=== PATIENT | male | born 1940 | race Two or more races ===

== ENCOUNTER 2017-08-30 13:01 | Outpatient (CLI) | payer OTHER | END 2017-08-30 15:29 | disposition home or self-care (01) | LOC: RAD 13:01 | DX: J44.9 Chronic obstructive pulmonary disease, unspecified (principal) ==

== ENCOUNTER 2017-08-30 14:25 | Outpatient (CLI) | payer OTHER | END 2017-08-30 15:29 | disposition home or self-care (01) | LOC: MRI 14:25 | DX: H90.3 Sensorineural hearing loss, bilateral (principal); H93.13 Tinnitus, bilateral | CPT/HCPCS: 70553; A9579 ==

== ENCOUNTER → 2017-08-30 | Outpatient (CLI) | payer OTHER ==
[~2017-08-30] MED LIST: GABARONE100 MG
== END | disposition home or self-care (01) ==
LOC: LAB 12:06
DX: H90.3 Sensorineural hearing loss, bilateral (principal)

== ENCOUNTER 2017-10-22 08:59 | Outpatient (CLI) | payer OTHER | END 2017-10-22 15:24 | disposition home or self-care (01) | LOC: TOM 08:59 | DX: K57.90 Diverticulosis of intestine, part unspecified, without perforation or abscess without bleeding (principal); N20.0 Calculus of kidney | CPT/HCPCS: 74177; Q9965 ==

== ENCOUNTER 2017-10-29 08:15 | Inpatient (IN) | payer OTHER ==
[~2017-10-29] VITALS: Ht 170.2 cm; Wt 93.4 kg
[2017-10-29] MEDS ORDERED: LEVO-T25 MCG PO (12:44)
[2017-10-29] MEDS ORDERED: ANTI-GAS180 MG PO (12:45)
[2017-10-29] MEDS ORDERED: METOPROLOL SUCC50 MG PO (12:45)
[2017-10-29] MEDS ORDERED: TAMS0.4C PO (12:45)
[2017-10-29] MEDS ORDERED: PLAVIX75 MG PO (12:46)
[2017-10-29] MEDS ORDERED: ASA81 MG PO (12:46)
[2017-10-29] MEDS ORDERED: COZAAR25 MG PO (12:46)
== END 2017-11-19 17:45 | disposition home or self-care (01) | DRG 329 ==
LOC: ADM 08:15 → EDSTATUS 08:15 → SURH 11-12 07:00 → O/R 11-12 07:45 → SURH 11-12 08:15
PROVIDERS: Colon & Rectal Surgery
PROC: 07TC4ZZ Resection of Pelvis Lymphatic, Percutaneous Endoscopic Approach (ICD-10-PCS; 2017-11-12)
PROC: 0DBU4ZZ Excision of Omentum, Percutaneous Endoscopic Approach (ICD-10-PCS; 2017-11-12)
PROC: 5A1945Z Respiratory Ventilation, 24-96 Consecutive Hours (ICD-10-PCS; 2017-11-12)
PROC: 0BH17EZ Insertion of Endotracheal Airway into Trachea, Via Natural or Artificial Opening (ICD-10-PCS; 2017-11-12)
PROC: 3E0F7GC Introduction of Other Therapeutic Substance into Respiratory Tract, Via Natural or Artificial Opening (ICD-10-PCS; 2017-11-12)
PROC: 4A033R1 Measurement of Arterial Saturation, Peripheral, Percutaneous Approach (ICD-10-PCS; 2017-11-12)
PROC: 0DTF4ZZ Resection of Right Large Intestine, Percutaneous Endoscopic Approach (ICD-10-PCS; principal; 2017-11-12 07:00)
PROC: 3E0336Z Introduction of Nutritional Substance into Peripheral Vein, Percutaneous Approach (ICD-10-PCS; 2017-11-15)
DX: C18.2 Malignant neoplasm of ascending colon (principal); J95.821 Acute postprocedural respiratory failure; J95.89 Other postprocedural complications and disorders of respiratory system, not elsewhere classified; J98.11 Atelectasis; K91.840 Postprocedural hemorrhage of a digestive system organ or structure following a digestive system procedure; R59.0 Localized enlarged lymph nodes; J44.9 Chronic obstructive pulmonary disease, unspecified; I10 Essential (primary) hypertension; E78.4 Other hyperlipidemia; E03.8 Other specified hypothyroidism; I25.10 Atherosclerotic heart disease of native coronary artery without angina pectoris; F17.210 Nicotine dependence, cigarettes, uncomplicated; I25.2 Old myocardial infarction; G20 Parkinson's disease; N40.0 Benign prostatic hyperplasia without lower urinary tract symptoms

== ENCOUNTER 2018-04-25 08:18 | Outpatient (CLI) | payer OTHER ==
[~2018-04-25 08:18] MED LIST changes: +ANTI-GAS180 MG PO; +ASA81 MG PO; +COZAAR25 MG PO; +LEVO-T25 MCG PO; +METOPROLOL SUCC50 MG PO; +PLAVIX75 MG PO; +TAMS0.4C PO
== END 2018-04-25 08:28 | disposition home or self-care (01) ==
LOC: RAD 501 08:18
DX: M54.5 Low back pain (principal)

== ENCOUNTER 2018-05-07 10:56 | Emergency (ER) | payer OTHER ==
[~2018-05-07] VITALS: Ht 170.2 cm; Wt 86.6 kg
[2018-05-07] MEDS ORDERED: A/F PAIN RELIE500 MG (11:11)
[2018-05-07] MEDS ORDERED: ISOSORBIDE1 GM (11:11)
[2018-05-07] MEDS ORDERED: NEURONTIN800 MG (11:11)
[2018-05-07] MEDS ORDERED: ATORVASTATIN CA20 MG (11:13)
[2018-05-07] MEDS ORDERED: MONTELUKAST SODI1 GM (11:13)
== END 2018-05-07 19:58 | disposition home or self-care (01) ==
LOC: ER 10:56
DX: R06.02 Shortness of breath (principal)

== ENCOUNTER 2018-06-12 17:32 | Emergency (ER) | payer OTHER ==
[~2018-06-12] VITALS: Ht 170.2 cm; Wt 86.2 kg
[~2018-06-12 17:32] MED LIST changes: +A/F PAIN RELIE500 MG; +ATORVASTATIN CA20 MG; +ISOSORBIDE1 GM; +MONTELUKAST SODI1 GM; +NEURONTIN800 MG
== END 2018-06-12 19:13 | disposition home or self-care (01) ==
LOC: ER 17:32
DX: G51.0 Bell's palsy (principal)

== ENCOUNTER 2018-06-18 13:18 | Outpatient (CLI) | payer OTHER | END 2018-06-18 15:00 | disposition home or self-care (01) | LOC: TOM 13:18 | DX: G51.0 Bell's palsy (principal) | CPT/HCPCS: 70551 ==

== ENCOUNTER → 2018-09-25 | Outpatient (CLI) | payer OTHER | END | disposition home or self-care (01) | LOC: RAD 501 15:15 | DX: M15.0 Primary generalized (osteo)arthritis (principal) ==

== ENCOUNTER 2019-01-13 16:02 | Outpatient (CLI) | payer OTHER | END 2019-01-13 16:08 | disposition home or self-care (01) | LOC: RAD 501 16:02 | DX: M25.562 Pain in left knee (principal) ==

== ENCOUNTER → 2019-04-20 | Outpatient (CLI) | payer OTHER | END | disposition home or self-care (01) | LOC: RAD 12:57 | DX: J80 Acute respiratory distress syndrome (principal) ==

== ENCOUNTER → 2021-11-29 | Emergency (ER) | payer OTHER ==
[~2021-11-29] VITALS: Ht 170.2 cm; Wt 88.5 kg
== END | disposition home or self-care (01) ==
LOC: ER 19:16
DX: K42.9 Umbilical hernia without obstruction or gangrene (principal); K57.90 Diverticulosis of intestine, part unspecified, without perforation or abscess without bleeding; K80.20 Calculus of gallbladder without cholecystitis without obstruction; Z20.822 Contact with and (suspected) exposure to COVID-19; I10 Essential (primary) hypertension; Z72.0 Tobacco use

== ENCOUNTER → 2022-07-05 | Outpatient (CLI) | payer OTHER | END | disposition home or self-care (01) | LOC: RAD 12:07 | PROVIDERS: ATTEND Internal Medicine Pulmonary Disease | DX: J43.2 Centrilobular emphysema (principal) ==

== ENCOUNTER 2023-06-04 15:07 | Outpatient (CLI) | payer OTHER | END 2023-06-04 15:18 | disposition home or self-care (01) | LOC: TOM 15:07 | PROVIDERS: ATTEND Internal Medicine Pulmonary Disease | DX: J44.1 Chronic obstructive pulmonary disease with (acute) exacerbation (principal); R06.02 Shortness of breath; J98.11 Atelectasis; Z72.0 Tobacco use; E66.01 Morbid (severe) obesity due to excess calories ==